=== PATIENT | female | born 1975 | race Two or more races ===

== ENCOUNTER → 2017-01-23 | Outpatient (CLI) | payer OTHER ==
[~2017-01-23] MED LIST: CYCL5TA PO; MOBI7.5T10 PO; NEXI40CA PO
--- NOTE | 2017-01-23 14:08 | REP ---
Clinical: Incontinence. Technique: Real time gomez scale and color evaluation of the bilateral kidneys and bladder using curved array transducer. Findings: The bilateral kidneys are normal in contour, size, echogenicity and reniform shape without hydronephrosis, nephrolithiasis, cystic or renal mass lesion. Right kidney measures 11.4 x 4.5 x 3.6 cm. Left kidney measures 11.7 x 4.7 x 4.7 cm. The bladder is unremarkable currently measuring approximately 7.4 x 6.5 x 4.1 cm. Impression: Normal renal ultrasound. Signed by Malachi Lira MD 01/23/2017 02:00 P
--- NOTE | 2017-01-23 14:33 | REP ---
KUB, ONE VIEW: HISTORY: Incontinence. A small amount of air is present in the small and large intestine. There are no air fluid levels or dilated loops of intestine. There is no pneumoperitoneum. Surgical clips are present in the pelvis. A punctate metallic density is present overlying the mid right and lateral abdomen. IMPRESSION: Nonspecific bowel gas pattern. Signed by Luis Alberto Carlin MD 01/23/2017 02:34 P
== END ==
LOC: M RAD 13:28
PROVIDERS: ATTEND Specialist
DX: N39.46 Mixed incontinence (principal)

== ENCOUNTER → 2017-02-15 | Outpatient (CLI) | payer OTHER ==
[~2017-02-15] MED LIST changes: +METHACHOLINE KIT (J7674) INH ONE
--- NOTE | 2017-02-15 09:40 | PFTRPT ---
METHACHOLINE CHALLENGE REPORT: ORDERING PROVIDER: MILIND Stone DATE OF SERVICE: 02/15/17 INTERPRETATION: The study was of excellent technical quality. Under protocol, methacholine was administered. Even after a maximal dose of 25 mg (188.875 CDUs) of methacholine , no provocation dose was ever achieved. IMPRESSION: Negative methacholine challenge study. MTDD
== END ==
LOC: M CARPUL 08:36
PROVIDERS: ATTEND Nurse Practitioner Adult Health
DX: R06.02 Shortness of breath (principal)

== ENCOUNTER 2019-01-22 05:51 | Emergency (ER) | payer OTHER ==
[~2019-01-22] VITALS: Ht 167.6 cm; Wt 100.0 kg
[2019-01-22 05:51] VITALS: BP 118/91
[~2019-01-22 05:51] MED LIST changes: -METHACHOLINE KIT (J7674) INH ONE; +MOBI4TAB PO; -MOBI7.5T10 PO
[2019-01-22] MEDS ORDERED: TOPA200T7 PO (05:57)
[2019-01-22] MEDS ORDERED: CYMB60CA3 PO (05:57)
[2019-01-22] MEDS ORDERED: NS 1,000 ML IV ONE (06:15)
[2019-01-22] MEDS ORDERED: METOCLOPRAMIDE INJ 10MG/2ML VIAL (J2765) IV ONE (06:15)
--- NOTE | 2019-01-22 06:38 | ED PDOC ---
Post-Departure Follow-Up PT WAS IN THE WAITING ROOM, ORDERS WERE PLACED. PT LEFT WITHOUT BEING PLACED IN AN EXAM ROOM, PT LEFT WITHOUT BEING SEEN BY A PROVIDER. ANABELLA MATHIAS PA-C Jan 22, 2019 06:38
== END 2019-01-22 06:42 | disposition left against medical advice (07) ==
LOC: M ED 05:51
DX: J00 Acute nasopharyngitis [common cold] (principal); Z53.21 Procedure and treatment not carried out due to patient leaving prior to being seen by health care provider

== ENCOUNTER 2019-08-28 08:03 | Day surgery (SDC) | payer OTHER ==
[~2019-08-28] VITALS: Ht 167.6 cm; Wt 110.1 kg
[~2019-08-28 08:03] MED LIST changes: -CYCL5TA PO; +CYCL5TAB5 PO; +CYMB60CA3 PO; +NS 1,000 ML IV ONE; +PANT40TA3 PO; +TOPA200T7 PO
[2019-08-28] MEDS ORDERED: fentaNYL 100 MCG/2 ML INJECTION (J3010) As Ordered ONE (09:14)
[2019-08-28] MEDS ORDERED: PROPOFOL 500 MG/50 ML VIAL As Ordered ONE (09:14)
[2019-08-28] MEDS ORDERED: LIDOCAINE 2% INJ 100 MG/5 ML SDV (FOR ANES.) As Ordered ONE (09:14)
--- NOTE | 2019-08-28 09:28 | ROOR ---
Patient Name: Anyi Shelley Procedure Date: 08/28/2019 9:09 AM Date of : 1975 Age: 43 Room: [facility] Gender: Female Note Status: Finalized Procedure: Upper Endoscopy + Biopsies Indications: Heartburn, Failure to respond to medical treatment Providers: Alexi Hernandez MD Referring MD: RIGO SIERRA MD Requesting Provider: Medicines: Monitored Anesthesia Care Complications: No immediate complications. Procedure: Pre-Anesthesia Assessment: - The heart rate, respiratory rate, oxygen saturations, blood pressure, adequacy of pulmonary ventilation, and response to care were monitored throughout the procedure. The Endoscope was introduced through the mouth, and advanced to the second part of duodenum. The upper GI endoscopy was accomplished without difficulty. The patient tolerated the procedure well. Findings: The Z-line was variable and was found 35 cm from the incisors. Multiple biopsies were obtained with cold forceps for evaluation to rule out Monroe's Esophagus randomly at the gastroesophageal junction. Mucosal changes were found in the mid esophagus. Biopsies were taken with a cold forceps for histology. A small hiatal hernia was present. No other significant abnormalities were identified in a careful examination of the stomach. Biopsies were taken with a cold forceps in the gastric antrum for Helicobacter pylori testing. The exam of the duodenum was otherwise normal. Impression: - Z-line variable, 35 cm from the incisors. - Esophageal mucosal changes. Biopsied. - Small hiatal hernia. - Multiple biopsies were obtained at the gastroesophageal junction. - Biopsies were taken with a cold forceps for Helicobacter pylori testing. - The examination was otherwise normal. Recommendation: - Patient has a contact number available for emergencies. The signs and symptoms of potential delayed complications were discussed with the patient. Return to normal activities tomorrow. Written discharge instructions were provided to the patient. - High fiber diet. - Discharge patient to home. - Follow an antireflux regimen. - Continue present medications. - Await pathology results. - Telephone GI clinic for pathology results in 1 week. - Return to referring physician. - The findings and recommendations were discussed with the patient's family. Alexi Hernandez MD Alexi Hernandez MD 08/28/2019 9:28:20 AM Electronically signed by Alexi Hernandez MD Number of Addenda: 0 Note Initiated On: 08/28/2019 9:09 AM Estimated Blood Loss: Estimated blood loss: none.
[2019-08-28 09:54] VITALS: BP 187/86
== END 2019-08-28 09:56 | disposition home or self-care (01) ==
LOC: M OPP 08:03
PROVIDERS: ATTEND Internal Medicine Gastroenterology
DX: K22.8 Other specified diseases of esophagus (principal); K44.9 Diaphragmatic hernia without obstruction or gangrene; R12 Heartburn; K21.9 Gastro-esophageal reflux disease without esophagitis; Z79.899 Other long term (current) drug therapy
CPT/HCPCS: 43239; 88305; J3010

== ENCOUNTER → 2020-01-17 | Outpatient (CLI) | payer OTHER ==
[~2020-01-17] MED LIST changes: -NS 1,000 ML IV ONE
== END ==
LOC: M WHC 13:44
PROVIDERS: ATTEND Physician Assistant Medical
DX: Z12.31 Encounter for screening mammogram for malignant neoplasm of breast (principal)

== ENCOUNTER → 2021-01-22 | Outpatient (CLI) | payer OTHER ==
[~2021-01-22] MED LIST changes: +PANT40TA29 PO; -PANT40TA3 PO
--- NOTE | 2021-01-22 10:22 | REPMRS ---
Patient History The patient states she has not had a clinical breast exam in over a year. No known family history of cancer. No Hormone Replacement Therapy Digital Woman Screen Mammo: January 22, 2021 - Exam #: [id number] Bilateral CC and MLO view(s) were taken. Technologist: Azalia aHmm, Technologist Prior study comparison: January 17, 2020, bilateral digital woman screen mammo performed at [facility]. June 27, 2018, digital mammo diagnostic bilateral, performed at [facility]. June 14, 2017, right breast diagnostic unilateral mammo, performed at [facility]. FINDINGS: There are scattered fibroglandular densities. The Volpara volumetric breast density category is:B. There has been no change in the appearance of the mammogram from the prior studies. There is a mild amount of scattered fibroglandular density which is fairly symmetric. There is no interval development of dominant mass, architectural distortion, or grouped microcalcification suggestive of malignancy. 3-D tomosynthesis shows no additional findings. Assessment: BI-RADS/ACR category 1 mammogram. Negative Mammogram. Recommendation Routine screening mammogram of both breasts in 1 year (for women over age 40). This patient's [facility] Lifetime Breast Cancer Risk is estimated at 9.8 %. This mammogram was interpreted with the aid of an FDA-approved computer-aided dectection system. Electronically Signed By: Boris Curiel MD 01/22/21 [id number]
--- NOTE | 2021-01-22 16:35 | REP ---
INDICATION: DENSE BREASTS. Screening sonography. COMPARISON: Comparison is made with today's mammography.. TECHNIQUE: Bilateral whole breast sonography. FINDINGS: Heterogeneous fibroglandular background echotexture is seen bilaterally. In the right breast at 12 o'clock 3 cm from the nipple there is a 0.7 cm benign cyst. At 10 o'clock in the right breast, 9 cm from the nipple there is a 0.5 cm cyst. In the left breast at 2 o'clock there are 3 cysts approximately 8 cm from nipple measuring 0.4, 0.5, and 0.7 cm in greatest diameter respectively. Mildly prominent retroareolar duct is noted on the left. No suspicious sonographic finding is seen on either side. IMPRESSION: BI-RADS category 2 benign findings. <Electronically signed by Boris Curiel > 01/22/21 [id number]
== END ==
LOC: M WHC 09:25
PROVIDERS: ATTEND Physician Assistant Medical
DX: Z12.31 Encounter for screening mammogram for malignant neoplasm of breast (principal); N60.11 Diffuse cystic mastopathy of right breast; N60.12 Diffuse cystic mastopathy of left breast

== ENCOUNTER → 2021-02-26 | Outpatient (CLI) | payer OTHER ==
--- NOTE | 2021-02-26 08:44 | REP ---
INDICATION: INTERVERTEBRAL DISC DISPLACEMENT L REGION. Rule out sacroiliitis. Lower back pain. COMPARISON: No comparison imaging. TECHNIQUE: Axial, oblique coronal, and sagittal imaging planes utilized. T1 and T2 weighted scans are included with without fat saturation. This imaging protocol targets sacrum and SI joints.. FINDINGS: Cortical and medullary bone signal intensity are normal in the sacrum. SI joints are normally aligned and unremarkable on T1 and T2 weighted scans. There is no evidence of rib erosion, joint fluid, edema, or ankylosis. Presacral and retro sacral soft tissues are unremarkable. Coccyx appears intact. The uterus is retroverted retroflexed measuring approximately 6.2 x 5.7 x 7.8 cm. No focal uterine mass is seen. There is a small cyst in the left ovary consistent with a follicle cyst. Physiologic fluid is seen in the cul-de-sac. No pelvic mass or adenopathy is appreciated. Exam is otherwise unremarkable. IMPRESSION: Negative MRI study of the sacrum and SI joints. Retroverted retroflexed uterus noted. Otherwise unremarkable study. <Electronically signed by Boris Curiel > 02/26/21 [id number]
== END ==
LOC: M RAD 06:34
PROVIDERS: ATTEND Physician Assistant
DX: M51.26 Other intervertebral disc displacement, lumbar region (principal)

== ENCOUNTER → 2022-03-23 | Outpatient (CLI) | payer OTHER ==
[~2022-03-23] MED LIST changes: -CYMB60CA3 PO; +CYMB60CA4 PO
== END ==
LOC: M WHC 06:57
PROVIDERS: ATTEND Physician Assistant Medical
DX: Z12.31 Encounter for screening mammogram for malignant neoplasm of breast (principal)

== ENCOUNTER → 2023-03-22 | Outpatient (CLI) | payer OTHER ==
[~2023-03-22] MED LIST changes: +ATOR1TAB21 PO; +CELE1CAP4 PO; +FENO145T7 PO
== END ==
LOC: M RAD 07:32 → MERGE 08:00
PROVIDERS: ATTEND Internal Medicine Gastroenterology
DX: R10.11 Right upper quadrant pain (principal)

== ENCOUNTER → 2023-04-07 | Outpatient (CLI) | payer OTHER | LOC: MERGE 03-24 08:00 → M WHC 08:32 | PROVIDERS: ATTEND Physician Assistant Medical | DX: Z12.31 Encounter for screening mammogram for malignant neoplasm of breast (principal) ==

== ENCOUNTER 2023-07-13 13:00 | Day surgery (SDC) | payer OTHER ==
[~2023-07-13] VITALS: Ht 167.6 cm; Wt 94.4 kg
[~2023-07-13 13:00] MED LIST changes: +CYMB1CAP4 PO; +ERGO500029 PO; +TRAZ-186 PO
[2023-07-13] MEDS ORDERED: ACET-907 PO (13:16)
[2023-07-13] MEDS ORDERED: LR 1,000 ML IV SCH ×2 (13:25→15:55)
[2023-07-13] MEDS ORDERED: MIDAZOLAM INJ 2MG/2ML VIAL As Ordered ONE (13:59)
[2023-07-13] MEDS ORDERED: fentaNYL 100 MCG/2 ML INJECTION As Ordered ONE ×2 (13:59→14:10)
[2023-07-13] MEDS ORDERED: propofoL 200 MG/20 ML VIAL As Ordered ONE (14:00)
[2023-07-13] MEDS ORDERED: LIDOCAINE 2% 100MG/5ML SDV (FOR ANES.) As Ordered ONE (14:02)
[2023-07-13] MEDS ORDERED: ROCURONIUM BROMIDE 50MG/5ML VIAL As Ordered ONE (14:03)
[2023-07-13] MEDS ORDERED: LABETALOL 100MG/20ML VIAL As Ordered ONE (15:12)
[2023-07-13] MEDS ORDERED: fentaNYL 100 MCG/2 ML INJECTION IV PRN (15:55)
[2023-07-13] MEDS ORDERED: ONDANSETRON 4MG 2ML VIAL IV PRN (15:55)
[2023-07-13] MEDS ORDERED: HYDROMORPHONE HCL 0.5 MG/ 0.5 ML SYRINGE IV PRN (15:55)
[2023-07-13] MEDS: oxyCODONE 5MG TAB PO PRN ×2 (16:34→17:09)
[2023-07-13 17:23] VITALS: BP 160/85; TEMP 97.2; O2SAT 98
[2023-07-13] MEDS ORDERED: NORCO, ANEXSIA 5/325MG TABLET (HYDROcodone/ACETAMINOPHEN) PO PRN (17:35)
== END 2023-07-13 18:05 | disposition home or self-care (01) ==
LOC: M SDC 13:00
PROVIDERS: ATTEND Surgery
DX: K81.9 Cholecystitis, unspecified (principal); K82.8 Other specified diseases of gallbladder; Z79.899 Other long term (current) drug therapy
CPT/HCPCS: 47562; 88304; J0665; J1920; J2250; J2405; J3010; S2900

== ENCOUNTER → 2023-12-29 | Outpatient (CLI) | payer OTHER ==
[~2023-12-29] MED LIST changes: +ACET-907 PO; +GASTROGRAFIN SOLUTION 30ML As Ordered ONE; +ISOVUE-370 76% 100ML VIAL As Ordered ONE
== END ==
LOC: M RAD 15:03
PROVIDERS: ATTEND Surgery
DX: R10.11 Right upper quadrant pain (principal); Z90.49 Acquired absence of other specified parts of digestive tract
CPT/HCPCS: 74177; Q9963; Q9967

== ENCOUNTER → 2024-03-19 | Outpatient (CLI) | payer OTHER ==
[~2024-03-19] MED LIST changes: -GASTROGRAFIN SOLUTION 30ML As Ordered ONE; -ISOVUE-370 76% 100ML VIAL As Ordered ONE
== END ==
LOC: M PLAIMG 06:47
PROVIDERS: ATTEND Physician Assistant
DX: M51.17 Intervertebral disc disorders with radiculopathy, lumbosacral region (principal); M47.896 Other spondylosis, lumbar region; M48.07 Spinal stenosis, lumbosacral region

== ENCOUNTER → 2024-08-21 | Outpatient (CLI) | payer OTHER | LOC: M WHC 16:08 | PROVIDERS: ATTEND Physician Assistant Medical | DX: Z12.31 Encounter for screening mammogram for malignant neoplasm of breast (principal) ==

== ENCOUNTER 2024-08-29 16:48 | Observation (INO) | payer OTHER ==
[~2024-08-29] VITALS: Ht 167.6 cm; Wt 105.3 kg
[2024-08-29] MEDS ORDERED: CELE100C PO (17:06)
[2024-08-29] MEDS ORDERED: CYMB60CA4 PO (17:07)
[2024-08-29 17:35] LABS: BASO % 0.4 % (0.0-1.0); EOS # 0.1 10^3/uL (0.0-0.5); EOS % 1.1 % (0.0-3.0); HEMATOCRIT 41.8 % (36.0-47.0); HEMOGLOBIN 13.7 g/dl (12.0-15.5); LYMPH # 2.5 10^3/uL (1.5-5.0); LYMPH % 31.5 % (24.0-44.0); MEAN CORPUSCULAR HEMOGLOBIN 30.8 pg (27.0-33.0); MEAN CORPUSCULAR HGB CONC 32.8 g/dl (32.0-36.5); MEAN CORPUSCULAR VOLUME 93.9 fl (80.0-96.0); MONO # 0.6 10^3/uL (0.0-0.8); MONO % 7.5 % (2.0-8.0); NEUTROPHILS # 4.8 10^3/uL (1.5-8.5); NEUTROPHILS % 59.3 % (36.0-66.0); PLATELET COUNT, AUTOMATED 287 10^3/uL (150-450); RED BLOOD COUNT 4.45 10^6/uL (4.00-5.40)
[2024-08-29 17:57] LABS: ALBUMIN 3.3 G/DL (3.2-5.2); ALKALINE PHOSPHATASE 155 U/L (46-116); ALT/SGPT 59 U/L (7.0-40); AST/SGOT 64 U/L (<34); BILIRUBIN,DIRECT 0.1 MG/DL (<0.4); BILIRUBIN,TOTAL 0.4 MG/DL (0.3-1.2); BLOOD UREA NITROGEN 17 MG/DL (9-23); CALCIUM LEVEL 9.1 MG/DL (8.5-10.1); CARBON DIOXIDE LEVEL 27 MMOL/L (20-31); CHLORIDE LEVEL 107 MMOL/L (98-107); CREATININE FOR GFR 0.98 MG/DL (0.55-1.30); GLOMERULAR FILTRATION RATE > 60.0 (>58); GLUCOSE, FASTING 95 MG/DL (60-100); POTASSIUM SERUM 4.4 MMOL/L (3.5-5.1); SODIUM LEVEL 139 MMOL/L (136-145); TOTAL PROTEIN 7.3 G/DL (5.7-8.2)
[2024-08-29] MEDS ORDERED: ISOVUE-370 76% 100ML VIAL As Ordered ONE (18:39)
[2024-08-29 18:51] LABS: CK-MB VALUE MASS 1.6 NG/ML (<3.6)
[2024-08-29] MEDS ORDERED: ATOR40TA75 PO (19:01)
[2024-08-29] MEDS ORDERED: GABA-1172 PO (19:01)
[2024-08-29] MEDS ORDERED: HOME MED LIST COMPLETE! XX SCH (19:05)
[2024-08-29 19:06] LABS: CPK CREATINE PHOSPHOKINASE 2649 U/L (34-145); MB/CK RELATIVE INDEX 0.06 (< OR =4)
[2024-08-29 19:26] LABS: CK-MB VALUE MASS 1.6 NG/ML (<3.6)
[2024-08-29] MEDS: METOCLOPRAMIDE INJ 10MG/2ML VIAL IV ONE (19:37)
[2024-08-29 19:41] LABS: MB/CK RELATIVE INDEX 0.06 (< OR =4)
[2024-08-29] MEDS: NS 1,000 ML IV SCH ×2 (19:45→22:39)
[2024-08-29] MEDS ORDERED: MOM 30ML SUSPENSION UDC PO PRN (22:10)
[2024-08-29] MEDS ORDERED: ACETAMINOPHEN 325 MG TAB PO PRN (22:10)
[2024-08-29] MEDS ORDERED: MAALOX 30 ML SUSP *UDC PO PRN (22:10)
[2024-08-29 23:17] LABS: INR 1.05; PARTIAL THROMBOPLASTIN TIME 34.3 SECONDS (24.8-34.2); PROTHROMBIN TIME 13.4 SECONDS (12.5-14.5)
[2024-08-29 23:49] VITALS: BP 170/100; TEMP 97; O2SAT 98
[2024-08-30] VITALS (13 sets, daily range): BP systolic 137–176; BP diastolic 76–98; TEMP 96.8–97.5; O2SAT 94–99
[2024-08-30 06:23] LABS: HEMATOCRIT 41.4 % (36.0-47.0); HEMOGLOBIN 13.5 g/dl (12.0-15.5); MEAN CORPUSCULAR HEMOGLOBIN 30.7 pg (27.0-33.0); MEAN CORPUSCULAR HGB CONC 32.6 g/dl (32.0-36.5); MEAN CORPUSCULAR VOLUME 94.1 fl (80.0-96.0); PLATELET COUNT, AUTOMATED 272 10^3/uL (150-450); WHITE BLOOD COUNT 6.5 10^3/uL (4.0-10.0)
[2024-08-30 07:04] LABS: ALKALINE PHOSPHATASE 149 U/L (46-116); ALT/SGPT 54 U/L (7.0-40); AST/SGOT 61 U/L (<34); BILIRUBIN,TOTAL 0.5 MG/DL (0.3-1.2); BLOOD UREA NITROGEN 13 MG/DL (9-23); CALCIUM LEVEL 8.5 MG/DL (8.5-10.1); CARBON DIOXIDE LEVEL 25 MMOL/L (20-31); CHLORIDE LEVEL 109 MMOL/L (98-107); CHOLESTEROL LEVEL 234 MG/DL (<200); CHOLESTEROL RISK RATIO 4.96 (<5); CPK CREATINE PHOSPHOKINASE 2040 U/L (34-145); CREATININE FOR GFR 0.67 MG/DL (0.55-1.30); GLOMERULAR FILTRATION RATE > 60.0 (>58); GLUCOSE, FASTING 114 MG/DL (60-100); HDL CHOLESTEROL 47.1 MG/DL (>40); LDL CHOLESTEROL 141.9 MG/DL (<100); MAGNESIUM LEVEL 2.1 MG/DL (1.8-2.4); NON-HDL-C 186.9 MG/DL; POTASSIUM SERUM 4.2 MMOL/L (3.5-5.1); SODIUM LEVEL 139 MMOL/L (136-145); TOTAL PROTEIN 6.7 G/DL (5.7-8.2); TRIGLYCERIDES LEVEL 225 MG/DL (<150)
[2024-08-30] MEDS: GABAPENTIN 300 MG CAP PO SCH (08:59)
[2024-08-30] MEDS: CelecoXIB (CeleBREX) 100 MG CAP PO SCH (09:00)
[2024-08-30] MEDS: amLODIPine 5 MG TAB PO SCH ×2 (09:00→21:07)
[2024-08-30] MEDS: ENOXAPARIN 40MG/0.4ML SYRINGE (J1650 PER 10MG) SC SCH (09:01)
[2024-08-30] MEDS: ACETAMINOPHEN 325 MG TAB PO SCH (17:50)
[2024-08-30] MEDS: DULoxetine 30MG CAPSULE (CYMBALTA) PO SCH (21:06)
[2024-08-30] MEDS: LORATADINE 10 MG TAB PO SCH (22:18)
[2024-08-31 03:28] VITALS: BP 116/70; TEMP 97.2; O2SAT 97
[2024-08-31 05:12] LABS: BASO % 0.6 % (0.0-1.0); EOS # 0.1 10^3/uL (0.0-0.5); EOS % 1.9 % (0.0-3.0); HEMATOCRIT 41.5 % (36.0-47.0); HEMOGLOBIN 13.8 g/dl (12.0-15.5); LYMPH # 2.2 10^3/uL (1.5-5.0); LYMPH % 33.7 % (24.0-44.0); MEAN CORPUSCULAR HEMOGLOBIN 30.5 pg (27.0-33.0); MEAN CORPUSCULAR HGB CONC 33.3 g/dl (32.0-36.5); MEAN CORPUSCULAR VOLUME 91.6 fl (80.0-96.0); MONO # 0.5 10^3/uL (0.0-0.8); MONO % 8.2 % (2.0-8.0); NEUTROPHILS # 3.5 10^3/uL (1.5-8.5); NEUTROPHILS % 55.1 % (36.0-66.0); PLATELET COUNT, AUTOMATED 268 10^3/uL (150-450); RED BLOOD COUNT 4.53 10^6/uL (4.00-5.40); WHITE BLOOD COUNT 6.4 10^3/uL (4.0-10.0)
[2024-08-31 05:47] LABS: ALBUMIN 3.1 G/DL (3.2-5.2); ALKALINE PHOSPHATASE 159 U/L (35-104); ALT/SGPT 65 U/L (7.0-40); AST/SGOT 75 U/L (<34); BILIRUBIN,TOTAL 0.5 MG/DL (0.3-1.2); BLOOD UREA NITROGEN 11 MG/DL (9-23); CALCIUM LEVEL 8.8 MG/DL (8.5-10.1); CARBON DIOXIDE LEVEL 24 MMOL/L (20-31); CHLORIDE LEVEL 109 MMOL/L (98-107); CREATININE FOR GFR 0.72 MG/DL (0.55-1.30); GLOMERULAR FILTRATION RATE > 60.0 (>58); GLUCOSE, FASTING 114 MG/DL (60-100); POTASSIUM SERUM 4.1 MMOL/L (3.5-5.1); SODIUM LEVEL 139 MMOL/L (136-145); TOTAL PROTEIN 6.8 G/DL (5.7-8.2)
[2024-08-31 06:16] LABS: CPK CREATINE PHOSPHOKINASE 1802 U/L (34-145)
[2024-08-31] MEDS ORDERED: AMLO1TAB25 PO (07:17)
[2024-08-31 07:56] VITALS: BP 157/85; TEMP 97; O2SAT 96
[2024-08-31 08:20] VITALS: BP 157/85
[2024-08-31] MEDS ORDERED: GABA-1172 PO (10:25)
== END 2024-08-31 09:53 | disposition home or self-care (01) ==
LOC: M ED 16:48 → M ED INP 16:49 → M PCU 23:51
PROVIDERS: ADMIT Student in an Organized Health Care Education/Training Program; ATTEND Student in an Organized Health Care Education/Training Program
DX: M62.82 Rhabdomyolysis (principal); I10 Essential (primary) hypertension; M50.30 Other cervical disc degeneration, unspecified cervical region; M54.12 Radiculopathy, cervical region; R20.2 Paresthesia of skin; M62.830 Muscle spasm of back; M51.370 Other intervertebral disc degeneration, lumbosacral region with discogenic back pain only; R07.89 Other chest pain; K44.9 Diaphragmatic hernia without obstruction or gangrene; R68.83 Chills (without fever); H53.8 Other visual disturbances; R51.9 Headache, unspecified; E78.5 Hyperlipidemia, unspecified; J39.9 Disease of upper respiratory tract, unspecified; Z90.49 Acquired absence of other specified parts of digestive tract; Z98.890 Other specified postprocedural states; Z79.899 Other long term (current) drug therapy
CPT/HCPCS: 36415; 70450; 70544; 70551; 71275; 72141; 80047; 80053; 80061; 81001; 81002; 82248; 82550; 82553; 83735; 84484; 85025; 85027; 85610; 85730; 87086; 87486; 87581; 87633; 87798; 93005; 93041; 94760; 96361; 96372; 96374; 99285; G0378; J1650; J2765; Q9967

== ENCOUNTER 2024-09-10 09:40 | Emergency (ER) | payer OTHER ==
[~2024-09-10] VITALS: Ht 167.6 cm; Wt 106.2 kg
[~2024-09-10 09:40] MED LIST changes: +AMLO1TAB25 PO; +ATOR40TA75 PO; +CELE100C PO; +GABA-1172 PO
[2024-09-10 10:37] LABS: BASO % 0.5 % (0.0-1.0); EOS % 0.4 % (0.0-3.0); HEMATOCRIT 43.2 % (36.0-47.0); HEMOGLOBIN 14.2 g/dl (12.0-15.5); LYMPH % 27.3 % (24.0-44.0); MEAN CORPUSCULAR HEMOGLOBIN 30.6 pg (27.0-33.0); MEAN CORPUSCULAR HGB CONC 32.9 g/dl (32.0-36.5); MEAN CORPUSCULAR VOLUME 93.1 fl (80.0-96.0); MONO # 0.5 10^3/uL (0.0-0.8); MONO % 7.1 % (2.0-8.0); NEUTROPHILS # 4.7 10^3/uL (1.5-8.5); PLATELET COUNT, AUTOMATED 307 10^3/uL (150-450); RED BLOOD COUNT 4.64 10^6/uL (4.00-5.40); WHITE BLOOD COUNT 7.4 10^3/uL (4.0-10.0)
[2024-09-10 11:08] LABS: CPK CREATINE PHOSPHOKINASE 55 U/L (34-145)
[2024-09-10 11:09] LABS: BLOOD UREA NITROGEN 14 MG/DL (9-23); CALCIUM LEVEL 8.9 MG/DL (8.5-10.1); CARBON DIOXIDE LEVEL 24 MMOL/L (20-31); CHLORIDE LEVEL 104 MMOL/L (98-107); CK-MB VALUE MASS < 1.0 NG/ML (<3.6); GLOMERULAR FILTRATION RATE > 60.0 (>58); GLUCOSE, FASTING 130 MG/DL (60-100); MB/CK RELATIVE INDEX 1.81 (< OR =4); POTASSIUM SERUM 4.3 MMOL/L (3.5-5.1); SODIUM LEVEL 136 MMOL/L (136-145)
[2024-09-10] MEDS ORDERED: AMLO1TAB25 PO (11:16)
[2024-09-10] MEDS ORDERED: NEUR300C PO (11:18)
[2024-09-10] MEDS ORDERED: HOME MED LIST COMPLETE! XX SCH (11:20)
[2024-09-10 11:46] LABS: CK-MB VALUE MASS < 1.0 NG/ML (<3.6)
[2024-09-10 11:48] LABS: CPK CREATINE PHOSPHOKINASE 51 U/L (34-145); MB/CK RELATIVE INDEX 1.96 (< OR =4)
[2024-09-10 11:56] LABS: AMPHETAMINES LEVEL URINE NEGATIVE (NEGATIVE); BENZODIAZEPINES URINE NEGATIVE (NEGATIVE); COCAINE METABOLITE URINE NEGATIVE (NEGATIVE)
[2024-09-10 11:57] LABS: BARBITURATES URINE NEGATIVE (NEGATIVE); CANNABINOIDS URINE NEGATIVE (NEGATIVE); METHADONE URINE NEGATIVE (NEGATIVE); OPIATES URINE NEGATIVE (NEGATIVE); PHENCYCLIDINE URINE NEGATIVE (NEGATIVE)
[2024-09-10 13:05] VITALS: BP 136/73; TEMP 97.9; O2SAT 96
== END 2024-09-10 13:15 | disposition home or self-care (01) ==
LOC: M ED 09:40
DX: I10 Essential (primary) hypertension (principal); R07.89 Other chest pain; K21.9 Gastro-esophageal reflux disease without esophagitis; F43.10 Post-traumatic stress disorder, unspecified; Z79.899 Other long term (current) drug therapy

== ENCOUNTER → 2024-09-11 | Outpatient (CLI) | payer OTHER ==
[~2024-09-11] MED LIST changes: +NEUR300C PO
== END ==
LOC: M WHC 12:40
PROVIDERS: ATTEND Physician Assistant Medical
DX: R92.0 Mammographic microcalcification found on diagnostic imaging of breast (principal)

== ENCOUNTER → 2024-12-13 | Outpatient (CLI) | payer OTHER | LOC: M WHC 07:11 | PROVIDERS: ATTEND Physician Assistant Medical | DX: D25.9 Leiomyoma of uterus, unspecified (principal); N88.8 Other specified noninflammatory disorders of cervix uteri ==

== ENCOUNTER → 2025-08-22 | Outpatient (CLI) | payer OTHER | LOC: M WHC 10:52 | PROVIDERS: ATTEND Internal Medicine | DX: Z12.31 Encounter for screening mammogram for malignant neoplasm of breast (principal); R92.323 Mammographic fibroglandular density, bilateral breasts ==